=== PATIENT | male | born 1950 | race Hispanic/Latino ===

== ENCOUNTER 2018-02-14 12:14 | Observation (INO) | payer MEDICARE ==
[~2018-02-14] VITALS: Ht 170.2 cm; Wt 131.7 kg
[2018-02-14] MEDS ORDERED: SODIUM CHLORIDE 0.9% 1000ML 1,000 ML IV STA (12:47)
[2018-02-14 12:56] LABS: BASOPHILS % 0.3 % (0.0-1.0); EOSINOPHILS # (AUTO) 0.2 (0.0-0.4); EOSINOPHILS % 1.6 % (0.0-6.0); HEMATOCRIT 40.9 % (38.2-49.6); HEMOGLOBIN 14.2 g/dL (14.0-18.0); LYMPHOCYTES # (AUTO) 1.3 (1.0-3.2); LYMPHOCYTES % 14.5 % (18.0-39.1); MEAN CORPUSCULAR HEMOGLOBIN 31.5 pg (28-32); MEAN CORPUSCULAR HGB CONC 34.7 g/dL (31-35); MEAN CORPUSCULAR VOLUME 90.7 fL (81-99); MONOCYTES # (AUTO) 0.6 (0.2-0.8); MONOCYTES % 6.6 % (4.4-11.3); NEUTROPHILS % 76.6 % (38.7-80.0); PLATELET COUNT 203 x10e3/uL (140-360); RED BLOOD COUNT 4.51 x10e6/uL (4.3-5.7); RED CELL DISTRIBUTION WIDTH 11.9 % (11.7-14.4)
[2018-02-14] MEDS ORDERED: ASPIRIN 81 MG CHEW TAB PO ONE (13:00)
[2018-02-14] MEDS ORDERED: NITROGLYCERIN 2% OINT 1 GM PKT TOP ONE (13:00)
[2018-02-14 13:04] LABS: INR 0.95; PROTHROMBIN TIME 13.6 seconds (11.9-14.5)
[2018-02-14 13:05] LABS: PARTIAL THROMBOPLASTIN TIME 28.2 seconds (23.8-35.5)
[2018-02-14 13:14] LABS: ALANINE AMINOTRANSFERASE 15 IU/L (0-55); ALBUMIN 3.7 g/dL (3.5-5.0); ALBUMIN/GLOBULIN RATIO 1.2 (0.8-2.0); ALKALINE PHOSPHATASE 74 IU/L (40-150); ANION GAP 14.9 mmol/L (8-16); BLOOD UREA NITROGEN 16 mg/dL (7-26); BUN/CREATININE RATIO 18 (6-25); CALCIUM 9.5 mg/dL (8.4-10.2); CARBON DIOXIDE 25 mmol/L (22-29); CHLORIDE 103 mmol/L (98-107); CREATINE KINASE 173 IU/L (30-200); CREATININE, SERUM 0.91 mg/dL (0.72-1.25); EST GLOMERULAR FILTRATION RATE > 60 ML/MIN (60-); GLUCOSE 221 mg/dL (74-118); POTASSIUM 3.9 mmol/L (3.5-5.1); SODIUM 139 mmol/L (136-145)
--- NOTE | 2018-02-14 13:35 | Diagnostic Imaging Report ---
EXAM: XR CHEST 1 VIEW DATE: 02/14/2018 12:47 PM INDICATION: Pain COMPARISON: None FINDINGS: Lines and Tubes: None Heart and Mediastinum: No acute cardiomediastinal findings. Lungs and Pleura: No significant pleural effusion, pneumothorax, or focal consolidation. Bones and Soft Tissues: No acute findings. IMPRESSION: 1. No acute cardiopulmonary findings. Signed by: Dr. Rolan Lin MD on 02/14/2018 1:32 PM
[2018-02-14] MEDS ORDERED: FAMOTIDINE 20 MG TAB PO SCH (15:30)
[2018-02-14] MEDS ORDERED: MORPHINE SULFATE 2 MG/ML SYR IV PRN (15:30)
[2018-02-14] MEDS ORDERED: ONDANSETRON HCL INJ 2 MG/ML VIAL IV PRN (15:30)
[2018-02-14] MEDS ORDERED: NITROGLYCERIN 0.4 MG SUBL SL PRN (15:30)
[2018-02-14] MEDS ORDERED: DEXTROSE 50% SYRINGE 50 ML IV PRN (15:30)
[2018-02-14] MEDS: INSULIN REGULAR, HUMAN 100 UNIT/1 ML 3ML VIAL SQ SCH ×2 (16:30→22:03)
[2018-02-14 17:10] VITALS: BP 130/60
[2018-02-14 17:33] VITALS: BP 130/60
[2018-02-14 17:40] LABS: CHOL/HDL RATIO 3.8 (3.9-4.7)
[2018-02-14] MEDS ORDERED: COLACE100 MG PO (18:09)
[2018-02-14] MEDS ORDERED: ASPIR-LOW81 MG PO (18:09)
[2018-02-14] MEDS ORDERED: ATORVASTATIN CA10 MG PO (18:09)
[2018-02-14] MEDS ORDERED: METFORMIN HCL500 MG PO (18:09)
[2018-02-14] MEDS ORDERED: FLOMAX0.4 MG PO (18:09)
[2018-02-14] MEDS ORDERED: GLYBURIDE5 MG PO (18:09)
[2018-02-14] MEDS ORDERED: METOPROLOL TART25 MG PO (18:09)
[2018-02-14] MEDS ORDERED: ACARBOSE100 MG PO (18:09)
[2018-02-14] MEDS ORDERED: COZAAR25 MG PO (18:09)
[2018-02-14] MEDS ORDERED: HYDROMORPHONE 2MG/ML 2 MG/ML ML IV ONE (18:30)
[2018-02-14] MEDS: NITROGLYCERIN 2% OINT 1 GM PKT TOP SCH (18:41)
--- NOTE | 2018-02-14 19:22 | Consultation ---
DATE OF CONSULTATION: February 14, 2018 CARDIOLOGY CONSULTATION REQUESTING PHYSICIAN: Dr. Rizo. REASON FOR CONSULTATION: Chest pain. HISTORY OF PRESENT ILLNESS: This is a 67-year-old male with history of diabetes mellitus, hypertension, hyperlipidemia, sleep apnea not being treated, and history of anemia who presents with complaints of chest pain. The patient reports left-sided chest pain, 4/10 in severity for approximately the last 12 days. He is not able to further characterize the pain, but states it occurs once to twice a day and lasts approximately 5 minutes at a time. The pain does not radiate and is not associated with shortness of breath, nausea, or diaphoresis. He denies any orthopnea, PND, or dyspnea on exertion. REVIEW OF SYSTEMS: Negative except as per HPI. PAST MEDICAL HISTORY 1. Diabetes mellitus. 2. Hypertension. 3. Hyperlipidemia. 4. Sleep apnea, not being treated. 5. History of anemia. PAST SURGICAL HISTORY 1. Foot surgery. 2. Appendectomy. ALLERGIES: PIOGLITAZONE. MEDICATIONS: Please see medication list. SOCIAL HISTORY: He previously smoked half a pack a day for 10 years, he quit 30 years ago. No illicit drugs, but does endorse alcohol use. FAMILY HISTORY: Pertinent for father with cardiomegaly and sister with permanent pacemaker implantation. PHYSICAL EXAM VITAL SIGNS: Temperature 98.5 degrees, pulse 63, respiratory rate 20, blood pressure 119/59, and oxygen saturation 99%. GENERAL: Obese gentleman in no acute distress, well-developed, well-nourished. HEENT: Normocephalic, atraumatic. Pupils are equal. No scleral icterus. NECK: Supple. No thyromegaly or cervical lymphadenopathy. No carotid bruits. LUNGS: Clear to auscultation bilaterally. No wheezes or crackles. CARDIOVASCULAR: Normal rate, regular rhythm. No murmur. Normal S1 and S2. ABDOMEN: Soft, nontender. Obese. EXTREMITIES: 1+ pitting edema. Varicose veins present bilaterally. NEURO: Nonfocal exam. LABS: WBC 9.2, hemoglobin 14.2, hematocrit 40.9, and platelets 203. Sodium 139, potassium 3.9, chloride 103, CO2 of 25, BUN 16, creatinine 0.91. Troponin 0.001, BNP 78.1. INR is 0.95. Chest x-ray, no acute cardiopulmonary findings. EKG, sinus rhythm with occasional PVCs. IMPRESSION 1. Chest pain. 2. Diabetes mellitus. 3. Hypertension. 4. Hyperlipidemia. 5. Sleep apnea. RECOMMENDATIONS: Trend cardiac enzymes to rule out myocardial infarction. We will obtain echocardiogram. Given patient's multiple risk factors, we will proceed with nuclear stress test for further evaluation. Check fasting lipid panel. Monitor patient on telemetry. Thank you for this consult. We will continue to follow. Job#: [id number] RTY
[2018-02-14 20:00] VITALS: BP 147/68
[2018-02-14 22:15] LABS: CREATINE KINASE 121 IU/L (30-200)
[2018-02-15] VITALS (7 sets, daily range): BP systolic 98–165; BP diastolic 49–75
[2018-02-15] MEDS: NITROGLYCERIN 2% OINT 1 GM PKT TOP SCH ×4 (06:00→17:36)
[2018-02-15 06:44] LABS: BASOPHILS % 0.4 % (0.0-1.0); EOSINOPHILS # (AUTO) 0.3 (0.0-0.4); EOSINOPHILS % 3.6 % (0.0-6.0); HEMATOCRIT 38.7 % (38.2-49.6); HEMOGLOBIN 12.9 g/dL (14.0-18.0); LYMPHOCYTES # (AUTO) 1.2 (1.0-3.2); LYMPHOCYTES % 16.5 % (18.0-39.1); MEAN CORPUSCULAR HGB CONC 33.3 g/dL (31-35); MONOCYTES # (AUTO) 0.5 (0.2-0.8); MONOCYTES % 7.3 % (4.4-11.3); NEUTROPHILS # (AUTO) 5.2 (2.1-6.9); NEUTROPHILS % 71.5 % (38.7-80.0); PLATELET COUNT 169 x10e3/uL (140-360); RED BLOOD COUNT 4.16 x10e6/uL (4.3-5.7)
[2018-02-15 07:07] LABS: BLOOD UREA NITROGEN 15 mg/dL (7-26); BUN/CREATININE RATIO 19 (6-25); CALCIUM 8.9 mg/dL (8.4-10.2); CARBON DIOXIDE 25 mmol/L (22-29); CHLORIDE 105 mmol/L (98-107); CHOL/HDL RATIO 3.8 (3.9-4.7); CHOLESTEROL 136 MD/DL (0-199); CREATININE, SERUM 0.77 mg/dL (0.72-1.25); EST GLOMERULAR FILTRATION RATE > 60 ML/MIN (60-); GLUCOSE 123 mg/dL (74-118); HDL CHOLESTEROL 36 MG/DL (40-60); LDL CHOLESTEROL 71 MG/DL (60-130); SODIUM 138 mmol/L (136-145); TRIGLYCERIDES 144 MG/DL (0-149)
[2018-02-15] MEDS: INSULIN REGULAR, HUMAN 100 UNIT/1 ML 3ML VIAL SQ SCH ×4 (07:30→21:08)
[2018-02-15] MEDS: LOSARTAN POTASSIUM 25 MG TAB PO SCH (09:00)
[2018-02-15] MEDS: DOCUSATE SODIUM 100 MG CAP PO SCH (09:00)
[2018-02-15] MEDS: ASPIRIN 81 MG ENTERIC COATED PO SCH (10:27)
[2018-02-15] MEDS: FAMOTIDINE 20 MG TAB PO SCH ×2 (10:27→21:06)
[2018-02-15] MEDS ORDERED: REGADENOSON 0.4 MG/5 ML SYR IV ONE (11:40)
--- NOTE | 2018-02-15 13:48 | History and Physical ---
PRIMARY CARE PHYSICIAN: Dr. Parada. CHIEF COMPLAINT: Chest pain. HISTORY OF PRESENT ILLNESS: This is a 67-year-old man with history of diabetes mellitus and hypertension, now developing left-sided chest pain described as 3/10 in severity, which lasted for less than 1 minute and resolved. He had no shortness of breath, diaphoresis, nausea, or vomiting. He did have mild dizziness, which quickly resolved. His last stress test he states was about 10 years ago, which he states was negative. He is here for further evaluation and management. PAST MEDICAL HISTORY: Diabetes mellitus, hypertension, history of cigarette use, sleep apnea, BPH, and hyperlipidemia. PAST SURGICAL HISTORY: Right foot and appendectomy. ALLERGIES: PER ELECTRONIC MEDICAL RECORD. FAMILY/SOCIAL HISTORY: Patient is . He has 1 child. No alcohol or illicits. He quit cigarettes many years ago. MEDICATIONS: Per electronic medical record. REVIEW OF SYSTEMS: Denies any dizziness, chest pain, shortness of breath, diaphoresis, fever, chills, sweats, nausea, vomiting, diarrhea, headache, or back pain. PHYSICAL EXAMINATION VITAL SIGNS: Have been reviewed. GENERAL: Tired-appearing man, resting in bed. HEENT: Anicteric. Pupils responsive to light. No oral lesions. CARDIOVASCULAR: Normal S1 and S2. LUNGS: He has moderate breath sounds. No wheezing. ABDOMEN: Soft, nontender, and nondistended. EXTREMITIES: No edema or calf tenderness. NEUROLOGICAL: Alert and oriented x3. Moving all extremities. MUSCULOSKELETAL: No chest wall tenderness. SKIN: Dry. PSYCHIATRIC: Normal affect. LABS: Reviewed. MEDICATIONS: Reviewed. ASSESSMENT: This is a 67-year-old man; 1. Chest pain. 2. Hypotension. 3. Morbid obesity. 4. Hyperlipidemia. 5. Diabetes mellitus type 2. 6. Benign prostatic hypertrophy. 7. Sleep apnea. PLAN 1. We will check cardiac enzymes. 2. Cardiology on board. 3. Follow up echocardiogram and stress testing. 4. We will utilize ARB, statin, and aspirin at this time and follow up other labs. 5. We will use Lovenox and Pepcid for prophylaxis. 6. Disposition: Followup stress testing and echocardiogram. Job#: [id number] LPA
--- NOTE | 2018-02-15 13:57 | Progress Note ---
DATE: February 15, 2018 CARDIOLOGY PROGRESS NOTE SUBJECTIVE: Patient reports he is still having some chest pain. Denies shortness of breath. OBJECTIVE: VITAL SIGNS: Temperature 97.3 degrees, pulse 70, respiratory rate 18, blood pressure 136/63, and oxygen saturation 99%. GENERAL: Obese man, in no acute distress, awake and alert. LUNGS: Clear to auscultation bilaterally. No wheezes or crackles. CARDIOVASCULAR: Normal rate, regular rhythm. No murmur. Normal S1 and S2. ABDOMEN: Soft and nontender. EXTREMITIES: 1+ pitting edema. Varicose veins present bilaterally. CARDIAC MEDICATIONS 1. Aspirin 81 mg p.o. daily. 2. Losartan 25 mg p.o. daily. 3. Enoxaparin 40 mg subcutaneously daily. 4. Atorvastatin 10 mg p.o. nightly. LABS: WBC 7.29, hemoglobin 12.9, hematocrit 38.7, and platelets 169. Sodium 138, potassium 4, chloride 105, CO2 of 25, BUN 15, creatinine 0.77. Troponin 0.04. TELEMETRY: Normal sinus rhythm. IMPRESSION 1. Chest pain. 2. Diabetes mellitus. 3. Hypertension. 4. Hyperlipidemia. 5. Sleep apnea. RECOMMENDATIONS: Patient with myocardial infarction with serial cardiac biomarkers. Echocardiogram has been done. We will review the images. Given patient's multiple risk factors, we performed nuclear stress test. We will review the images once they are available. Monitor patient on telemetry while admitted. Job#: [id number]
--- NOTE | 2018-02-15 15:19 | Cardiology Report ---
DATE OF STUDY: February 15, 2018 PROCEDURE TITLE: Rest stress single isotope SPECT imaging with pharmacologic stress and gated SPECT imaging. INDICATIONS: Chest pain. PROCEDURE: Pharmacologic stress testing was performed with regadenoson per protocol. The heart rate was 58 beats per minute at baseline and increased to a maximum heart rate of 88 beats per minute during the regadenoson infusion. The rest blood pressure was 149/88 mmHg and increased to be 156/81, which is normal response. Next, the patient did not develop any symptoms during the procedure. The resting electrocardiogram demonstrated normal sinus rhythm. There were no ST segment changes consistent with myocardial ischemia. Occasional PVCs were noted. Next, myocardial perfusion imaging was performed at rest following the injection of 10.5 millicuries of tetrofosmin at peak pharmacological effect. The patient was injected with 33 millicuries of tetrofosmin. Gated post stress tomographic imaging was performed. FINDINGS: The overall quality of study is fair. Left ventricular cavity is noted to be normal on the rest and stress studies. There is normal size on the rest and stress studies. SPECT images demonstrated homogenous tracer distribution throughout the myocardium. Gated SPECT imaging reveals normal myocardial thickening and wall motion. Left ventricular ejection fraction calculated to be 59%. IMPRESSION: Myocardial perfusion imaging is normal. Overall, left ventricular systolic function was normal without regional wall motion abnormalities. Job#: [id number] SUE
[2018-02-15] MEDS ORDERED: ENOXAPARIN SOD INJ 40 MG/0.4 ML SYR SC SCH (17:00)
[2018-02-15] MEDS ORDERED: TAMSULOSIN HCL 0.4 MG CAP PO SCH (21:00)
[2018-02-15] MEDS ORDERED: ATORVASTATIN 10 MG TAB PO SCH (21:00)
[2018-02-16] VITALS: BP 125/57
[2018-02-16] MEDS: NITROGLYCERIN 2% OINT 1 GM PKT TOP SCH ×2 (00:20→05:43)
[2018-02-16 04:00] VITALS: BP 101/54
[2018-02-16] MEDS ORDERED: NITROSTAT0.4 MG SL (05:28)
[2018-02-16] MEDS ORDERED: FAMOTIDINE20 MG PO (05:28)
[2018-02-16] MEDS: INSULIN REGULAR, HUMAN 100 UNIT/1 ML 3ML VIAL SQ SCH (07:30)
[2018-02-16] MEDS: ASPIRIN 81 MG ENTERIC COATED PO SCH (09:26)
[2018-02-16] MEDS: DOCUSATE SODIUM 100 MG CAP PO SCH (09:26)
[2018-02-16] MEDS: LOSARTAN POTASSIUM 25 MG TAB PO SCH (09:26)
[2018-02-16] MEDS: FAMOTIDINE 20 MG TAB PO SCH (09:26)
--- NOTE | 2018-02-16 11:53 | Discharge Summary ---
PRINCIPAL DIAGNOSES 1. Noncardiac chest pain. 2. Hypotension. 3. Morbid obesity. 4. Hyperlipidemia. 5. Diabetes mellitus, type 2. Glycosylated hemoglobin is 7.2, low-density lipoprotein 71, and triglycerides 144. 6. Sleep apnea. SECONDARY DIAGNOSIS: Sleep apnea. CHIEF COMPLAINT: Chest pain. HISTORY OF PRESENT ILLNESS: This is a 67-year-old man with chest pain. Please refer to the H and P for further details. HOSPITAL COURSE: The patient was found to have chest pain. Cardiac enzymes were negative. He underwent stress testing, which was negative. LDL was 71. The patient is doing better. Currently symptom-free and currently appropriate for discharge. DISCHARGE MEDICATIONS: Per electronic medical record. FOLLOWUP: With primary care doctor in 1 week. CONDITION ON DISCHARGE: Stable and improving. DISCHARGE LOCATION: Home. LUCRECIA DWYER MD Job#: [id number]
== END 2018-02-16 10:50 | disposition home or self-care (01) ==
LOC: ER 12:14 → ERHOLD 15:19 → MED/SURG3 17:10
PROVIDERS: ADMIT Internal Medicine; ATTEND Internal Medicine
DX: R07.89 Other chest pain (principal); I10 Essential (primary) hypertension; E11.9 Type 2 diabetes mellitus without complications; E78.5 Hyperlipidemia, unspecified; I95.9 Hypotension, unspecified; E66.01 Morbid (severe) obesity due to excess calories; G47.30 Sleep apnea, unspecified; N40.0 Benign prostatic hyperplasia without lower urinary tract symptoms; Z68.42 Body mass index [BMI] 45.0-49.9, adult; Z87.891 Personal history of nicotine dependence
CPT/HCPCS: 36415 ×3; 71045; 78452; 80048; 80053; 80061 ×2; 82550 ×2; 82553 ×2; 82948 ×3; 83036; 83880; 84484 ×2; 85025 ×2; 85610; 85730; 93005; 93017; 93306; 99284; A9502; G0378 ×3; J1650; J7030

== ENCOUNTER → 2018-09-24 | Day surgery (SDC) | payer MEDICARE, OTHER ==
[2018-09-21 11:45] LABS: BASOPHILS % 0.4 % (0.0-1.0); EOSINOPHILS # (AUTO) 0.3 (0.0-0.4); EOSINOPHILS % 3.2 % (0.0-6.0); HEMATOCRIT 40.3 % (38.2-49.6); HEMOGLOBIN 13.7 g/dL (14.0-18.0); LYMPHOCYTES # (AUTO) 1.4 (1.0-3.2); LYMPHOCYTES % 16.5 % (18.0-39.1); MEAN CORPUSCULAR HEMOGLOBIN 31.1 pg (28-32); MEAN CORPUSCULAR VOLUME 91.4 fL (81-99); MONOCYTES # (AUTO) 0.5 (0.2-0.8); NEUTROPHILS % 73.2 % (38.7-80.0); PLATELET COUNT 208 x10e3/uL (140-360); RED BLOOD COUNT 4.41 x10e6/uL (4.3-5.7); RED CELL DISTRIBUTION WIDTH 12.4 % (11.7-14.4)
[2018-09-21 12:04] LABS: ALANINE AMINOTRANSFERASE 15 IU/L (0-55); ALBUMIN 3.5 g/dL (3.5-5.0); ALBUMIN/GLOBULIN RATIO 1.1 (0.8-2.0); ALKALINE PHOSPHATASE 75 IU/L (40-150); ANION GAP 11.9 mmol/L (8-16); BLOOD UREA NITROGEN 16 mg/dL (7-26); BUN/CREATININE RATIO 17 (6-25); CALCIUM 9.6 mg/dL (8.4-10.2); CARBON DIOXIDE 27 mmol/L (22-29); CHLORIDE 101 mmol/L (98-107); CREATININE, SERUM 0.93 mg/dL (0.72-1.25); EST GLOMERULAR FILTRATION RATE > 60 ML/MIN (60-); GLUCOSE 248 mg/dL (74-118); POTASSIUM 3.9 mmol/L (3.5-5.1); SODIUM 136 mmol/L (136-145)
--- NOTE | 2018-09-21 12:14 | Diagnostic Imaging Report ---
EXAMINATION: PA and lateral views of the chest. COMPARISON: 02/14/2018 CLINICAL HISTORY: Preoperative study for back surgery DISCUSSION: Lines/tubes: None. Lungs: The lungs are well inflated and clear. There is no evidence of pneumonia or pulmonary edema. Pleura: There is no pleural effusion or pneumothorax. Heart and mediastinum: The cardiomediastinal silhouette is normal. Bones and soft tissues: No acute bony abnormalities. Degenerative changes in the thoracic spine IMPRESSION: No acute cardiopulmonary abnormalities. Signed by: Dr. Houston Hernandez M.D. on 09/21/2018 12:11 PM
[~2018-09-24] MED LIST: ACARBOSE100 MG PO; ACETAMINOPHEN 1000 MG/100 ML IV ONE; ASPIR-LOW81 MG PO; ATORVASTATIN CA10 MG PO; BUPIVACAINE 0.5%/EPI 30 ML SDV INJ ONE; BUPIVACAINE HCL 0.5% INJ 30 ML VIAL INJ ONE; CEFAZOLIN SOD 2 GM/D5W 50ML 50 ML IV ONE; COLACE100 MG PO; COZAAR25 MG PO; FAMOTIDINE20 MG PO; FENTANYL CITRATE/PF 100MCG/2 ML INJ ONE; FLOMAX0.4 MG PO; GLYBURIDE5 MG PO; LIDOCAINE HCL 2% JELLY 5 ML TUBE ONE; LIDOCAINE HCL 2% LOCAL INJ 5 ML SDV VIAL INJ ONE; METFORMIN HCL500 MG PO; METOPROLOL TART25 MG PO; MIDAZOLAM HCL 2 MG/2 ML VIAL ONE; NITROSTAT0.4 MG SL; ONDANSETRON HCL INJ 2MG/ML 2ML 2 MG/ML VIAL ONE; PROPOFOL IV EMULSION 10 MG/ML 20 ML VIAL ONE; ROCURONIUM BROMIDE 10 MG/ML 5ML VIAL ONE; SEVOFLURANE INHAL SOLN 250 ML PEN BTL ONE; SUCCINYLCHOLINE 200 MG/10 ML SYR ONE
[2018-09-24 16:20] VITALS: BP 138/70
--- NOTE | 2018-10-29 03:34 | Operative Report ---
DATE OF PROCEDURE: 09/24/2018 SURGEON: Houston Quiroz MD PREOPERATIVE DIAGNOSIS: Back lipoma. POSTOPERATIVE DIAGNOSIS: Back lipoma. OPERATIVE PROCEDURE: Excisional removal of the back lipoma. ANESTHESIA: General. INDICATION FOR SURGERY: The patient is a 67-year-old male with an enlarging mass on the upper back for several years with increasing discomfort. He has consented for excisional removal under anesthesia. Attendant risks discussed. DESCRIPTION OF THE PROCEDURE: The patient is brought to the OR, intubated in the supine position. He was then repositioned to the right lateral with the left side up. The upper back is prepped with alcohol and draped in a sterile fashion. A 10 cm transverse incision is made directly overlying the area of maximal height of the lipoma. The incision is carried through skin and subcutaneous tissue down to the pseudocapsule. The lipoma, which is incised in a transverse direction as a skin excision. This lipoma is then enucleated from the subcutaneous pocket using a combination of blunt and sharp dissection using cautery for hemostasis. The large lipoma was then removed intact. Operative field irrigated. The subcutaneous tissue was then approximated with 3-0 Vicryl and the skin closed with subcuticular stitch. The patient is extubated and transferred to recovery room. ESTIMATED BLOOD LOSS: 3 mL. Houston Quiroz MD DNL/MODL /[id number]
== END | disposition home or self-care (01) ==
LOC: OR 11:45
PROVIDERS: ATTEND Surgery
DX: D17.1 Benign lipomatous neoplasm of skin and subcutaneous tissue of trunk (principal); I10 Essential (primary) hypertension; E11.9 Type 2 diabetes mellitus without complications; Z01.810 Encounter for preprocedural cardiovascular examination; Z01.812 Encounter for preprocedural laboratory examination; Z01.818 Encounter for other preprocedural examination; Z79.82 Long term (current) use of aspirin; Z79.84 Long term (current) use of oral hypoglycemic drugs; Z68.41 Body mass index [BMI] 40.0-44.9, adult
CPT/HCPCS: 11406; 12034; 36415 ×2; 71046; 80053; 82948; 85025; 88304; 93005; J0131; J0690; J2001 ×2; J2250; J2405; J2704

== ENCOUNTER → 2018-10-10 | Outpatient (CLI) | payer MEDICARE ==
[~2018-10-10] MED LIST changes: -ACETAMINOPHEN 1000 MG/100 ML IV ONE; -BUPIVACAINE 0.5%/EPI 30 ML SDV INJ ONE; -BUPIVACAINE HCL 0.5% INJ 30 ML VIAL INJ ONE; -CEFAZOLIN SOD 2 GM/D5W 50ML 50 ML IV ONE; -FENTANYL CITRATE/PF 100MCG/2 ML INJ ONE; -LIDOCAINE HCL 2% JELLY 5 ML TUBE ONE; -LIDOCAINE HCL 2% LOCAL INJ 5 ML SDV VIAL INJ ONE; -MIDAZOLAM HCL 2 MG/2 ML VIAL ONE; -ONDANSETRON HCL INJ 2MG/ML 2ML 2 MG/ML VIAL ONE; -PROPOFOL IV EMULSION 10 MG/ML 20 ML VIAL ONE; -ROCURONIUM BROMIDE 10 MG/ML 5ML VIAL ONE; -SEVOFLURANE INHAL SOLN 250 ML PEN BTL ONE; -SUCCINYLCHOLINE 200 MG/10 ML SYR ONE
--- NOTE | 2018-10-10 11:48 | Diagnostic Imaging Report ---
KNEE LEFT THREE VIEWS - 3 views HISTORY: Pain. Left knee pain. COMPARISON: None available. FINDINGS: Bones: No acute displaced fracture. Osseous alignment is within normal limits. Joints: Moderate severe disc space narrowing in the medial and patellofemoral compartments. Mild degenerative changes in the lateral compartment. Loose joint body in the suprapatellar joint space. Small suprapatellar joint effusion. Soft tissues: Vascular calcifications. IMPRESSION: Moderate degenerative changes in the left knee with small joint effusion and loose joint bodies. Signed by: Dr. Jose Feldman M.D. on 10/10/2018 11:44 AM
== END ==
LOC: RAD 10:14
PROVIDERS: ATTEND Internal Medicine
DX: M25.562 Pain in left knee (principal)

== ENCOUNTER 2019-03-04 17:17 | Emergency (ER) | payer MEDICARE, OTHER ==
[~2019-03-04] VITALS: Ht 170.2 cm; Wt 124.7 kg
[2019-03-04] MEDS ORDERED: SODIUM CHLORIDE 0.9% 1000ML 500 ML IV STA (18:04)
[2019-03-04] MEDS ORDERED: SODIUM CHLORIDE 0.9% 1000ML 1,000 ML IV STA (18:04)
[2019-03-04 18:20] LABS: BASOPHILS % 0.4 % (0.0-1.0); EOSINOPHILS # (AUTO) 0.2 (0.0-0.4); EOSINOPHILS % 1.5 % (0.0-6.0); HEMATOCRIT 40.2 % (38.2-49.6); HEMOGLOBIN 13.7 g/dL (14.0-18.0); LYMPHOCYTES # (AUTO) 1.5 (1.0-3.2); LYMPHOCYTES % 13.8 % (18.0-39.1); MEAN CORPUSCULAR HEMOGLOBIN 31.5 pg (28-32); MEAN CORPUSCULAR HGB CONC 34.1 g/dL (31-35); MEAN CORPUSCULAR VOLUME 92.4 fL (81-99); MONOCYTES # (AUTO) 0.6 (0.2-0.8); MONOCYTES % 5.8 % (4.4-11.3); NEUTROPHILS # (AUTO) 8.3 (2.1-6.9); NEUTROPHILS % 77.8 % (38.7-80.0); PLATELET COUNT 214 x10e3/uL (140-360); RED BLOOD COUNT 4.35 x10e6/uL (4.3-5.7); RED CELL DISTRIBUTION WIDTH 11.9 % (11.7-14.4)
[2019-03-04 18:28] LABS: INR 0.9; PROTHROMBIN TIME 12.6 seconds (11.9-14.5)
[2019-03-04 18:29] LABS: PARTIAL THROMBOPLASTIN TIME 26.6 seconds (23.8-35.5)
[2019-03-04 18:34] LABS: ALANINE AMINOTRANSFERASE 19 IU/L (0-55); ALBUMIN 3.6 g/dL (3.5-5.0); ALBUMIN/GLOBULIN RATIO 1.2 (0.8-2.0); ALKALINE PHOSPHATASE 72 IU/L (40-150); ANION GAP 13.9 mmol/L (8-16); BLOOD UREA NITROGEN 12 mg/dL (7-26); BUN/CREATININE RATIO 14 (6-25); CARBON DIOXIDE 27 mmol/L (22-29); CHLORIDE 100 mmol/L (98-107); CREATINE KINASE 134 IU/L (30-200); CREATININE, SERUM 0.84 mg/dL (0.72-1.25); EST GLOMERULAR FILTRATION RATE > 60 ML/MIN (60-); GLUCOSE 153 mg/dL (74-118); POTASSIUM 3.9 mmol/L (3.5-5.1); SODIUM 137 mmol/L (136-145)
--- NOTE | 2019-03-04 18:38 | Diagnostic Imaging Report ---
EXAMINATION: CHEST SINGLE (PORTABLE) COMPARISON: Chest x-ray 09/21/2018 INDICATION: ^near syncope DISCUSSION: Frontal view of the chest obtained at 1801 hours. HEART AND MEDIASTINUM: The heart is top normal in size to mildly enlarged, stable LINES: None. LUNGS: Low lung volumes. Stable mild eventration of the right diaphragm. No pneumonia or pulmonary edema. PLEURA: No pleural effusion or pneumothorax. BONES AND SOFT TISSUES: No focal osseous lesion. The soft tissues are normal. IMPRESSION: Stable chest. No active disease. Signed by: Dr. Alea Gamez MD on 03/04/2019 6:34 PM
--- NOTE | 2019-03-04 18:42 | Diagnostic Imaging Report ---
Exam: Head CT without contrast History: Syncope Comparison studies: None Technique: Axial images were obtained from the skull base to the vertex. Coronal and sagittal images reconstructed from the axial data. Dose modulation, iterative reconstruction, and/or weight based adjustment of the mA/kV was utilized to reduce the radiation dose to as low as reasonably achievable. Radiation dose: Total DLP: 921 mGy*cm. Estimated effective dose: DLP x 0.015 Intravenous contrast: None Findings: Scalp: No abnormalities. Bones: No fractures, blastic or lytic lesions. Brain sulci: Mildly prominent. Ventricles: Mild compensatory dilatation.. No hydrocephalus. Extra-axial spaces: No masses, no fluid collection. Parenchyma: No abnormal densities. No masses, acute hemorrhage, acute or chronic vascular insults. Sellar/suprasellar region: No abnormalities. Craniocervical junction: Patent foramen magnum. No Chiari one malformation. Incidental findings: Atherosclerotic calcifications in the carotid siphons and left intradural vertebral artery. IMPRESSION: 1. No acute intracranial abnormalities. 2. Mild generalized parenchymal volume loss. Signed by: Dr. Houston Martinez M.D. on 03/04/2019 6:39 PM
[2019-03-04 19:10] LABS: MAGNESIUM 1.6 MG/DL (1.3-2.1)
[2019-03-04 19:30] LABS: THYROID STIMULATING HORMONE 1.514 uIU/mL (0.350-4.940)
[2019-03-05 01:53] VITALS: BP 152/81
== END 2019-03-04 21:15 | disposition home or self-care (01) ==
LOC: ER 17:17
DX: R42 Dizziness and giddiness (principal); R11.0 Nausea; M25.562 Pain in left knee; S83.92XA Sprain of unspecified site of left knee, initial encounter; X50.1XXA Overexertion from prolonged static or awkward postures, initial encounter; Y92.89 Other specified places as the place of occurrence of the external cause; I10 Essential (primary) hypertension; E11.9 Type 2 diabetes mellitus without complications; E78.5 Hyperlipidemia, unspecified
CPT/HCPCS: 36415; 70450; 71045; 80053; 82550; 82553; 83690; 83735; 83880; 84443; 84484; 85025; 85610; 85730; 93005; 93970

== ENCOUNTER → 2019-04-20 | Outpatient (CLI) | payer MEDICARE ==
--- NOTE | 2019-04-20 09:50 | Diagnostic Imaging Report ---
EXAM: US TESTICULAR DOPPLER LTD DATE: 04/20/2019 8:55 AM INDICATION: Atrophy of the testis COMPARISON: None FINDINGS: The right testicle is normal in size measuring 4.4 x 2.1 x 3.5 cm. No focal intratesticular lesions are identified. The right epididymis measures 0.7 x 0.5 x 0.6 cm. Arterial and venous flow are preserved. There is no evidence for hyperemia. The left testicle is normal in size measuring 3.9 x 1.8 x 3.6 cm. No focal intratesticular lesions are identified. The right epididymis measures 1.1 x 0.6 x 0.9 cm. Arterial and venous flow are preserved. There is no evidence for hyperemia. No significant varicocele or hydrocele is appreciated. IMPRESSION: Unremarkable testicular ultrasound examination demonstrating symmetrical/homogeneous appearing testicles. Signed by: Dr. Nick Cardenas MD on 04/20/2019 9:46 AM
== END ==
LOC: US 08:47
PROVIDERS: ATTEND Urology
DX: N50.0 Atrophy of testis (principal)
CPT/HCPCS: 76870; 93976

== ENCOUNTER → 2024-10-25 | Outpatient (REF) | payer MEDICARE | LOC: RAD 15:38 | PROVIDERS: ATTEND Specialist/Technologist, Other Surgical Technologist | DX: M54.50 Low back pain, unspecified (principal) | CPT/HCPCS: 72110 ==

== ENCOUNTER 2024-12-22 12:25 | Emergency (ER) | payer MEDICARE ==
[~2024-12-22] VITALS: Ht 170.2 cm; Wt 124.7 kg
[2024-12-22 13:00] VITALS: PULSE 65; RESP 18; TEMP 97.8
[2024-12-22 13:56] VITALS: BP 145/70; PULSE 74; RESP 18; TEMP 98.2; O2SAT 99
== END 2024-12-22 14:04 | disposition home or self-care (01) ==
LOC: FSED 13:50
DX: I10 Essential (primary) hypertension (principal); E11.9 Type 2 diabetes mellitus without complications; E78.5 Hyperlipidemia, unspecified; D64.9 Anemia, unspecified; G47.30 Sleep apnea, unspecified
CPT/HCPCS: 99283